=== PATIENT | male | born 1995 ===

== ENCOUNTER 2017-06-07 08:03 | Emergency (ER) | payer MEDICAID ==
[2017-06-07 08:06] VITALS: RESP 22; TEMP 98.6; O2SAT 98
[2017-06-07 08:07] VITALS: BMI 26.2
[2017-06-07] MEDS ORDERED: Sodium Chloride 0.9% 1,000 ML IV STA (08:19)
[2017-06-07] MEDS ORDERED: DiphenhydrAMINE 50 mg/ml Inj IVP STA (08:21)
--- NOTE | 2017-06-07 08:21 | ED PDOC ---
HPI: Headache Time Seen by Provider: 06/07/17 08:14 Chief Complaint (Nursing): Headache Chief Complaint (Provider): Headache History Per: Patient History/Exam Limitations: no limitations Onset/Duration Of Symptoms: Hrs (x3 hours) Current Symptoms Are (Timing): Still Present Additional Complaint(s): Pt is a 22 y/o male with a past medical history of severe migraines, anxiety, and Attention-deficit/hyperactivity disorder (ADHD), and anxiety who presents to the emergency department with a complaint of a diffuse tension-like headache and photophobia x3 hours. Reports the pain is a 10/10. States pain worsens with light, sound, or standing up--consistent with his usual migraine headaches. This is not the worse headache of his life. Patient admits he experiences headache about 4-5 times a week. Denies any further medical complaints. Of note, patient reports he began experiencing severe headaches after head operation status post nail stuck in his skull. PMD: States his PMD recently retired Past Medical History Reviewed: Historical Data, Nursing Documentation, Vital Signs Vital Signs: Last Vital Signs Temp 98.6 F 06/07/17 08:05 Pulse 104 H 06/07/17 08:05 Resp 22 06/07/17 08:05 BP 116/62 06/07/17 08:05 Pulse Ox 98 06/07/17 08:05 - Medical History PMH: Anxiety, Schizophrenia Denies: Diabetes, Hepatitis, HIV, HTN, Seizures, Sexually Transmitted Disease Other PMH: Nerve damage and ADHD - Surgical History Other surgeries: Head Surgery - Family History Family History: States: No Known Family Hx - Social History Current smoker - smoking cessation education provided: No Alcohol: None Drugs: Denies - Immunization History Hx Tetanus Toxoid Vaccination: No Hx Influenza Vaccination: No Hx Pneumococcal Vaccination: No - Home Medications Home Medications: Ambulatory Orders Medication Instructions Recorded Gabapentin [Neurontin] 300 mg PO BIDHS #90 cap 10/24/16 LORazepam [Ativan] 2 mg PO Q12 PRN #30 tab 10/24/16 QUEtiapine [Seroquel] 100 mg PO HS #30 tab 10/24/16 Zolpidem [Ambien] 5 mg PO HS PRN #15 tab 10/24/16 Acetaminophen/Butalbital/Caf 1 tab PO TID PRN #20 tab 06/07/17 [Fioricet] Aspirin/Acetaminophen/Caffeine 2 tab PO Q6 PRN #30 tablet 06/07/17 [Excedrin Migraine Caplet] Metoclopramide [Reglan] 1 tab PO TID PRN #25 tab 06/07/17 - Allergies Allergies/Adverse Reactions: Allergies Allergy/AdvReac Type Severity Reaction Status Date / Time No Known Allergies Allergy Verified 06/07/17 08:12 Review of Systems ROS Statement: Except As Marked, All Systems Reviewed And Found Negative Constitutional: Negative for: Fever Eyes: Positive for: Other (Photophobia) Cardiovascular: Negative for: Chest Pain Respiratory: Negative for: Shortness of Breath Neurological: Positive for: Headache (Severe, on both sides of the head) Physical Exam - Reviewed Nursing Documentation Reviewed: Yes Vital Signs Reviewed: Yes - Physical Exam Appears: Positive for: Non-toxic, No Acute Distress Head Exam: Positive for: ATRAUMATIC, NORMAL INSPECTION, NORMOCEPHALIC Skin: Positive for: Normal Color, Warm, Dry Eye Exam: Positive for: Normal appearance, EOMI, PERRL, Other (Positive photophbia) Neck: Positive for: Normal, Supple Cardiovascular/Chest: Positive for: Regular Rate, Rhythm. Negative for: Murmur Respiratory: Positive for: Normal Breath Sounds. Negative for: Accessory Muscle Use, Respiratory Distress Gastrointestinal/Abdominal: Positive for: Normal Exam, Soft Back: Positive for: Normal Inspection Extremity: Positive for: Normal ROM Neurologic/Psych: Positive for: Alert, Oriented (x3). Negative for: Motor/ Sensory Deficits - ECG O2 Sat by Pulse Oximetry: 98 (RA) Pulse Ox Interpretation: Normal Medical Decision Making Medical Decision Making: Time: 08:19 Initial impression: Migraine Initial plan: --Tylenol 975 mg PO --Benadryl 25 mg IVP --Toradol 30 mg IVP --Reglan 10 mg IV --Sodium Chloride IV 1L --Reevaluation Time: 09:32 --Patient stepped out of room and stated medications had resolved symptoms. --Pain described as 8/10 from what it was earlier before on arrival. --Decadron Inj 8 mg IVP --Magnesium 1gm/100ml Time: 1256 Upon provider reevaluation patient is feeling better, is medically stable, and requires no further treatment in the ED at this time. Patient will be discharged home with Rx for Excedrin Migraine Caplet and reglan. Counseling was provided and all questions were answered regarding diagnosis and need for follow up with PMD. There is agreement to discharge plan. Return if symptoms persist or worsen. Clinical Impression: Migraine Scribe Attestation: Documented by Liseth Blount, acting as a scribe for Flo Khoury MD. Provider Scribe Attestation: All medical record entries made by the Scribe were at my direction and personally dictated by me. I have reviewed the chart and agree that the record accurately reflects my personal performance of the history, physical exam, medical decision making, and the department course for this patient. I have also personally directed, reviewed, and agree with the discharge instructions and disposition. Disposition - Clinical Impression Clinical Impression: Migraine - Patient ED Disposition Is Patient to be Admitted: No Counseled Patient/Family Regarding: Diagnosis, Rx Given - Disposition Disposition: Routine/Home Disposition Time: 12:56 Condition: IMPROVED Additional Instructions: Mr. Hoffmann, thank you for letting us take care of you today. Return to the ER if your symptoms worsen, or if any problems. Take the medication listed below as prescribed. Follow up with your new doctor next week for a re-evaluation. Prescriptions: Acetaminophen/Butalbital/Caf [Fioricet] 1 tab PO TID PRN #20 tab PRN Reason: Headache Aspirin/Acetaminophen/Caffeine [Excedrin Migraine Caplet] 2 tab PO Q6 PRN #30 tablet PRN Reason: Migraine Headache Metoclopramide [Reglan] 1 tab PO TID PRN #25 tab PRN Reason: Migraine Headache Instructions: Migraine Headache (ED) Print Language: ERITREAN - POA Present On Arrival: None
[2017-06-07] MEDS ORDERED: Dexamethasone 4 mg/1 ml IVP STA (09:32)
[2017-06-07] MEDS ORDERED: Magnesium Sulfate 1 gm in D5W 1 GM/100 ML BAG IVPB STA (09:32)
[2017-06-07] MEDS ORDERED: Dexamethasone 4 mg/1 ml ONE (10:08)
[2017-06-07 13:23] VITALS: BP 119/59; PULSE 84
== END 2017-06-07 13:23 | disposition home or self-care (01) ==
LOC: H.ER 08:03
DX: G43.909 Migraine, unspecified, not intractable, without status migrainosus (principal); F90.9 Attention-deficit hyperactivity disorder, unspecified type
CPT/HCPCS: 96365; 96375; 99285; J1100; J1200; J1885; J2765; J3475; J7040